=== PATIENT | male | born 1990 | race American Indian/Alaskan Native ===

== ENCOUNTER 2018-08-01 02:20 | Emergency (ER) | payer MEDICAID, OTHER ==
[2018-08-01 02:29] VITALS: RESP 18
[2018-08-01] MEDS ORDERED: Morphine 2 mg/ml ISec IVP STA ×2 (03:33→07:30)
[2018-08-01] MEDS ORDERED: Sodium Chloride 0.9% 1,000 ML IV SCH (03:45)
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
[2018-08-01 05:55] LABS: HEMOGLOBIN 14.4 g/dL (14.0-18.0); MEAN CELL VOLUME 81.7 fl (80.0-105.0); MEAN CORPUSCULAR HGB CONC 35.5 g/dl (31.0-37.0); MEAN PLATELET VOLUME 10.4 fl (7.0-11.0); RBC 4.97 10^6/uL (3.5-6.1); RED CELL DISTRIBUTION WIDTH 14.8 % (11.5-14.5); WHITE BLOOD COUNT 9.2 10^3/ul (4.5-11.0)
[2018-08-01] MEDS ORDERED: Iohexol 350 MG/100 ML VIAL ONE (06:08)
[2018-08-01 06:25] LABS: ALB/GLOB RATIO 1.4 (1.1-1.8); ALBUMIN 4.6 g/dL (3.0-4.8); ALT/SGPT 23 U/L (7-56); AST/SGOT 42 U/L (17-59); BLOOD UREA NITROGEN 13 mg/dL (7-21); CALCIUM 9.3 mg/dL (8.4-10.5); GFR NON-AFRICAN AMERICAN > 60
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
[2018-08-01] MEDS ORDERED: Sodium Chloride 0.9% 1,000 ML IV STA (07:31)
[2018-08-01 07:51] VITALS: TEMP 98.3
--- NOTE | 2018-08-01 08:33 | CT ---
Date of service: 08/01/2018 PROCEDURE: CT Chest, Abdomen and Pelvis with intravenous contrast HISTORY: injury/pain left lower rib/abdominal region COMPARISON: None available. TECHNIQUE: IV dose administered: 100 cc of Omni 350 Radiation dose: Total exam DLP = 457 mGy-cm. This CT exam was performed using one or more of the following dose reduction techniques: Automated exposure control, adjustment of the mA and/or kV according to patient size, and/or use of iterative reconstruction technique. FINDINGS: CT CHEST WITH CONTRAST: LUNGS: Clear. No nodule, mass or consolidation. MEDIASTINUM: Unremarkable. Normal caliber aorta and pulmonary arterial trunk. No aortic dissection. Normal size heart. LYMPH NODES: Unremarkable. PLEURA: Unremarkable. No pneumothorax. No pleural fluid. BONES: Unremarkable. OTHER FINDINGS: None. CT ABDOMEN AND PELVIS: LIVER: Unremarkable. No gross lesion or ductal dilatation. GALLBLADDER AND BILE DUCTS: Unremarkable. PANCREAS: Unremarkable. No gross lesion or ductal dilatation. SPLEEN: Unremarkable. ADRENALS: Unremarkable. No mass. KIDNEYS AND URETERS: Unremarkable. No hydronephrosis. No solid mass. VASCULATURE: Unremarkable. No aortic aneurysm. BOWEL: Unremarkable. No obstruction. No gross mural thickening. APPENDIX: Normal appendix. PERITONEUM: Unremarkable. No free fluid. No free air. LYMPH NODES: Unremarkable. No enlarged lymph nodes. BLADDER: Unremarkable. REPRODUCTIVE: Unremarkable. BONES: No acute fracture. OTHER FINDINGS: None. IMPRESSION: Negative study
--- NOTE | 2018-08-01 08:35 | CT ---
Date of service: 08/01/2018 PROCEDURE: CT MAXILLOFACIAL BONES WITHOUT CONTRAST HISTORY: injury COMPARISON: None available. TECHNIQUE: Contiguous axial CT images of the maxillofacial bones were obtained. Coronal and sagittal reformats were generated. Radiation dose: Total exam DLP = 915 mGy-cm. This CT exam was performed using one or more of the following dose reduction techniques: Automated exposure control, adjustment of the mA and/or kV according to patient size, and/or use of iterative reconstruction technique. FINDINGS: NASAL BONES: Minimally displaced fracture of the right nasal bone with mild soft tissue swelling ORBITS: Unremarkable. PARANASAL SINUSES/ MASTOIDS: Clear. MAXILLA: Unremarkable. MANDIBLE/ TEMPOROMANDIBULAR JOINTS: Unremarkable. SKULL BASE: Unremarkable. TEMPORAL BONES: Middle ears and mastoid grossly unremarkable. OTHER FINDINGS: The report concurs with the preliminary [facility] report IMPRESSION: Minimally displaced fracture of the right nasal bone with mild soft tissue swelling
[2018-08-01 10:12] VITALS: BP 120/77; PULSE 72; O2SAT 99
== END 2018-08-01 10:11 | disposition home or self-care (01) ==
LOC: ED 02:20 → MERGE 02:20 → ED 10:11
DX: S09.93XA Unspecified injury of face, initial encounter (principal); S29.9XXA Unspecified injury of thorax, initial encounter; Y08.89XA Assault by other specified means, initial encounter; Y92.9 Unspecified place or not applicable
CPT/HCPCS: 70486; 71260; 74177; 80053; 85027; 96361; 96374; 96376; 99283; J2270; J7030; Q9967

== ENCOUNTER 2019-03-07 09:18 | Emergency (ER) | payer MEDICAID ==
--- NOTE | 2019-03-07 09:32 | ED PDOC ---
Arrival/HPI - General Time Seen by Provider: 03/07/19 09:27 - History of Present Illness Narrative History of Present Illness (Text): 03/07/19 09:36 28 m with no significant pmhx presents to the ED for medical evaluation of reported chest pain. Patient brought in by Tee ROJAS,under arrest,brought in for reported chest pain. Patient upon arrival to the ED refusing to sign consent for medical evaluation and treatment. Patient of sound mind and sensorium states to me that the reason he asked to come to the ED is because he wanted to delay going to detention so that he could make a phone call to his girlfriend to inform someone of what is going on. Patient denies to me he is having chest pain and he is not seeking medical attention. Patient expressed his frustration that he is being detained and that he is concerned he cannot communicate with his son. Past Medical History - Infectious Disease Hx of Infectious Diseases: None - Cardiac Hx Cardiac Disorders: No Hx Hypertension: No - Pulmonary Hx Tuberculosis: No - Neurological HX Cerebrovascular Accident: No Hx Seizures: No - Hematological/Oncological Hx Cancer: No - Genitourinary/Gynecological Hx Sexually Transmitted Diseases: No - Psychiatric Hx Substance Use: Yes - Anesthesia Hx Anesthesia: No Family/Social History Family/Social History: No Known Family HX Smoking Status: Light Smoker < 10 Cigarettes Daily Hx Alcohol Use: Yes Hx Substance Use: Yes Substance used: MARIJUANA, PCP Allergies/Home Meds Allergies/Adverse Reactions: Allergies No Known Allergies Allergy (Verified 10/29/18 08:53) Review of Systems - Physician Review All systems were reviewed & negative as marked: Yes Physical Exam - Physical Exam Narrative Physical Exam (Text): 03/07/19 09:31 Gen: VS reviewed, alert, well developed, well nourished, nontoxic, mild distress Eye: EOMI, PERRL Neck: no JVD, supple Ext: no edema Skin: good color, no rash, no cyanosis Psych: responds appropriately to questions, anxious Neuro: oriented x3, CN2-12 intact grossly, motor intact, sensation intact Medical Decision Making ED Course and Treatment: 03/07/19 09:39 patient brought to the Ed for medical screening but upon arrival to the ED the patient is refusing medical attention, has no physical complaints. patient is discharged from [facility] ED and will go into police custody. Disposition/Present on Arrival - Present on Arrival Any Indicators Present on Arrival: No History of DVT/PE: No History of Uncontrolled Diabetes: No Urinary Catheter: No History Surgical Site Infection Following: None - Disposition Have Diagnosis and Disposition been Completed?: Yes Diagnosis: General medical examination Disposition: HOME/ ROUTINE Disposition Time: 09:40 Patient Plan: Discharge Condition: STABLE Additional Instructions: return for any problems or concerns. patient is medically stable for incarceration. Referrals: [employer] [Outside] - Follow up with primary
== END 2019-03-07 09:28 | disposition home or self-care (01) ==
LOC: ED 09:18
DX: Z00.00 Encounter for general adult medical examination without abnormal findings (principal)